=== PATIENT | male | born 1945 | race African-American/Black ===

== ENCOUNTER 2016-11-23 07:12 | Emergency (ER) | payer MEDICARE, MEDICAID ==
[~2016-11-23] VITALS: Ht 167.6 cm; Wt 61.0 kg
[~2016-11-23 07:12] MED LIST: ATOR80TA76 PO; BENA40TA3 PO
[2016-11-23] MEDS ORDERED: ALBUTEROL (0.083%) 2.5MG/3ML NEB HHN STA (08:03)
[2016-11-23] MEDS ORDERED: IPRATROPIUM BROMIDE (0.02%) 0.5MG/2.5ML NEB HHN STA (08:03)
[2016-11-23] MEDS ORDERED: METHYLPREDNISOLONE SOD SUCC 125 MG/2 ML VIAL IV STA (08:03)
[2016-11-23 08:14] LABS: BASOPHILS % 0.8 % (0.0-2.0); EOSINOPHILS % 3.4 % (0.0-5.0); HEMATOCRIT. 35.3 % (42.0-52.0); HEMOGLOBIN. 11.5 g/dL (14.0-18.0); LYMPHOCYTES % 19.1 % (20.0-50.0); MEAN CORPUSCULAR HEMOGLOBIN 24.1 pg (28.0-32.0); MEAN CORPUSCULAR VOLUME 73.9 fL (80.0-94.0); MEAN PLATELET VOLUME 7.9 fl (7.4-10.4); MONOCYTES % 7.7 % (2.0-8.0); PLATELET 223 x1000/uL (130-400); RED BLOOD CELL COUNT 4.78 mill/uL (4.7-6.1); RED CELL DISTRIBUTION WIDTH 14.5 % (11.6-14.6)
[2016-11-23] MEDS ORDERED: MAGNESIUM 2 G PREMIX 50 ML IV ONE (08:15)
[2016-11-23 08:20] LABS: PROTHROMBIN TIME 10.7 sec
[2016-11-23 08:29] LABS: CARBON DIOXIDE 30 mEq/L (21-32); CHLORIDE 105 mEq/L (98-107); TROPONIN I < 0.02 ng/mL (0.00-0.04)
[2016-11-23 10:27] VITALS: BP 121/74
== END 2016-11-23 10:51 | disposition home or self-care (01) ==
LOC: ER 08:10
DX: J44.1 Chronic obstructive pulmonary disease with (acute) exacerbation (principal); J20.9 Acute bronchitis, unspecified; J44.0 Chronic obstructive pulmonary disease with (acute) lower respiratory infection; E78.00 Pure hypercholesterolemia, unspecified; I10 Essential (primary) hypertension
CPT/HCPCS: 36415; 71010; 80053; 83880; 84484; 85025; 85610; 93005; 94644; 96365; 96366; 96375; 99285; J2930; J3475; J7611

== ENCOUNTER 2017-03-24 10:36 | Emergency (ER) | payer MEDICARE, MEDICAID ==
[~2017-03-24] VITALS: Ht 175.3 cm; Wt 82.0 kg
[~2017-03-24 10:36] MED LIST changes: +ATOR-2 PO; -ATOR80TA76 PO
[2017-03-24] MEDS ORDERED: IPRATROPIUM/ALBUTEROL 0.5-3(2.5)MG/3ML NEB HHN ONE (11:30)
[2017-03-24 12:05] LABS: HEMATOCRIT. 40.2 % (42.0-52.0); HEMOGLOBIN. 12.5 g/dL (14.0-18.0); LYMPHOCYTES % 23.1 % (20.0-50.0); MEAN CORPUSCULAR HEMOGLOBIN 23.1 pg (28.0-32.0); MEAN PLATELET VOLUME 7.9 fl (7.4-10.4); MONOCYTES % 5.8 % (2.0-8.0); NEUTROPHILS % 68.1 % (40.0-76.0); PLATELET 197 x1000/uL (130-400); RED BLOOD CELL COUNT 5.43 mill/uL (4.7-6.1)
[2017-03-24 12:19] LABS: CARBON DIOXIDE 30 mEq/L (21-32); CHLORIDE 102 mEq/L (98-107); TROPONIN I < 0.02 ng/mL (0.00-0.04)
[2017-03-24 12:23] LABS: INR 1.1; PARTIAL THROMBOPLASTIN TIME 23.9 sec (23.4-31.0); PROTHROMBIN TIME 11.2 sec (9.4-11.6)
[2017-03-24 13:53] VITALS: BP 106/72
== END 2017-03-24 15:28 | disposition home or self-care (01) ==
LOC: ER 10:36
DX: J20.9 Acute bronchitis, unspecified (principal); B34.9 Viral infection, unspecified; I10 Essential (primary) hypertension; R00.1 Bradycardia, unspecified; E78.00 Pure hypercholesterolemia, unspecified; Z98.890 Other specified postprocedural states
CPT/HCPCS: 36415; 71010; 80053; 83690; 84484; 85025; 85610; 85730; 93005; 94640; 99285; J7620

== ENCOUNTER 2017-08-31 10:20 | Emergency (ER) | payer MEDICARE, MEDICAID ==
[~2017-08-31] VITALS: Ht 167.6 cm; Wt 59.0 kg
[2017-08-31] MEDS ORDERED: ALBUTEROL (0.083%) 2.5MG/3ML NEB HHN STA (10:45)
[2017-08-31] MEDS ORDERED: PREDNISONE 20MG TABLET PO STA (10:45)
[2017-08-31] MEDS ORDERED: IPRATROPIUM BROMIDE (0.02%) 0.5MG/2.5ML NEB HHN STA (10:45)
[2017-08-31 12:45] VITALS: BP 115/63
== END 2017-08-31 12:49 | disposition home or self-care (01) ==
LOC: ER 12:24
DX: J45.901 Unspecified asthma with (acute) exacerbation (principal); B34.9 Viral infection, unspecified; I10 Essential (primary) hypertension; E78.00 Pure hypercholesterolemia, unspecified; Z98.890 Other specified postprocedural states
CPT/HCPCS: 71045; 94644; 99285; J7512; J7611

== ENCOUNTER 2017-10-22 08:59 | Emergency (ER) | payer MEDICARE, MEDICAID ==
[~2017-10-22] VITALS: Ht 167.6 cm; Wt 61.0 kg
[2017-10-22 09:21] VITALS: BP 166/55
== END 2017-10-22 10:37 | disposition home or self-care (01) ==
LOC: ER 10:12
DX: K04.7 Periapical abscess without sinus (principal); I10 Essential (primary) hypertension; J45.909 Unspecified asthma, uncomplicated; E78.00 Pure hypercholesterolemia, unspecified; D64.9 Anemia, unspecified
CPT/HCPCS: 99283

== ENCOUNTER 2018-03-27 16:23 | Emergency (ER) | payer MEDICARE, MEDICAID ==
[~2018-03-27] VITALS: Ht 167.6 cm; Wt 61.0 kg
[~2018-03-27 16:23] MED LIST changes: -BENA40TA3 PO; +BENA40TA9 PO
[2018-03-27 16:54] VITALS: BP 115/82
[2018-03-27] MEDS ORDERED: IPRATROPIUM BROMIDE (0.02%) 0.5MG/2.5ML NEB HHN STA (17:14)
[2018-03-27] MEDS ORDERED: PREDNISONE 20MG TABLET PO STA (17:14)
[2018-03-27] MEDS ORDERED: ALBUTEROL (0.083%) 2.5MG/3ML NEB HHN STA (17:14)
[2018-03-27 19:13] LABS: BASOPHILS % 0.5 % (0.0-2.0); EOSINOPHILS % 1.1 % (0.0-5.0); HEMATOCRIT. 41.6 % (42.0-52.0); HEMOGLOBIN. 13.1 g/dL (14.0-18.0); LYMPHOCYTES % 14.6 % (20.0-50.0); MEAN CORPUSCULAR HEMOGLOBIN 24.2 pg (28.0-32.0); MEAN CORPUSCULAR VOLUME 76.5 fL (80.0-94.0); MEAN PLATELET VOLUME 7.8 fl (7.4-10.4); MONOCYTES % 8.9 % (2.0-8.0); NEUTROPHILS % 74.9 % (40.0-76.0); PLATELET 155 x1000/uL (130-400); RED BLOOD CELL COUNT 5.44 mill/uL (4.7-6.1); RED CELL DISTRIBUTION WIDTH 14.7 % (11.6-14.6)
[2018-03-27 19:20] LABS: CHLORIDE 103 mEq/L (98-107); INR 1.1; PROTHROMBIN TIME 11.3 sec (9.1-11.1)
== END 2018-03-27 19:43 | disposition left against medical advice (07) ==
LOC: ER 19:33
DX: R06.02 Shortness of breath (principal); J45.909 Unspecified asthma, uncomplicated; Z98.890 Other specified postprocedural states
CPT/HCPCS: 36415; 71045; 80053; 83880; 84484; 85025; 85610; 93005; 94640; 99285; J7512; J7611

== ENCOUNTER 2019-02-26 09:10 | Emergency (ER) | payer MEDICARE, MEDICAID ==
[~2019-02-26] VITALS: Ht 167.6 cm; Wt 57.0 kg
[2019-02-26] MEDS ORDERED: ALBU90AE INH (09:24)
[2019-02-26] MEDS ORDERED: METHYLPREDNISOLONE SOD SUCC 125 MG/2 ML VIAL IV STA (10:20)
[2019-02-26] MEDS ORDERED: ALBUTEROL (0.083%) 2.5MG/3ML NEB HHN STA (10:20)
[2019-02-26] MEDS ORDERED: IPRATROPIUM BROMIDE (0.02%) 0.5MG/2.5ML NEB HHN STA (10:20)
[2019-02-26 10:55] LABS: BASOPHILS % 0.6 % (0.0-2.0); EOSINOPHILS % 0.6 % (0.0-5.0); HEMATOCRIT. 41.8 % (42.0-52.0); HEMOGLOBIN. 13.4 g/dL (14.0-18.0); LYMPHOCYTES % 16.8 % (20.0-50.0); MEAN CORPUSCULAR VOLUME 78.1 fL (80.0-94.0); MEAN PLATELET VOLUME 6.6 fl (7.4-10.4); MONOCYTES % 11.5 % (2.0-8.0); NEUTROPHILS % 70.5 % (40.0-76.0); PLATELET 138 x1000/uL (130-400); RED BLOOD CELL COUNT 5.36 mill/uL (4.7-6.1); RED CELL DISTRIBUTION WIDTH 15.3 % (11.6-14.6)
[2019-02-26 11:02] LABS: CHLORIDE 105 mEq/L (98-107)
[2019-02-26 14:00] VITALS: BP 120/78
== END 2019-02-26 14:01 | disposition home or self-care (01) ==
LOC: ER 09:31
DX: J45.901 Unspecified asthma with (acute) exacerbation (principal); I10 Essential (primary) hypertension; Z85.038 Personal history of other malignant neoplasm of large intestine; Z98.890 Other specified postprocedural states
CPT/HCPCS: 36415; 71045; 80053; 83880; 84484; 85025; 93005; 94640; 96374; 99284; J2930; J7611

== ENCOUNTER 2020-01-30 11:26 | Emergency (ER) | payer MEDICARE, MEDICAID ==
[~2020-01-30] VITALS: Ht 167.6 cm; Wt 54.0 kg
[~2020-01-30 11:26] MED LIST changes: +ALBU90AE INH
[2020-01-30] MEDS ORDERED: FLUORESCEIN SODIUM 1MG/STRIP RIGHTEYE ONE (12:00)
[2020-01-30] MEDS ORDERED: ACETAMINOPHEN 325MG TABLET PO ONE (12:00)
[2020-01-30] MEDS ORDERED: TETRACAINE 0.5% OPHTH DROPS 4ML RIGHTEYE ONE (12:00)
[2020-01-30] MEDS ORDERED: ALBUTEROL (0.083%) 2.5MG/3ML NEB HHN STA (18:41)
[2020-01-30] MEDS ORDERED: IPRATROPIUM BROMIDE (0.02%) 0.5MG/2.5ML NEB HHN STA (18:41)
[2020-01-30 19:27] VITALS: BP 135/84
== END 2020-01-30 22:26 | disposition short-term general hospital (02) ==
LOC: ER 11:26
DX: S02.31XA Fracture of orbital floor, right side, initial encounter for closed fracture (principal); S02.2XXA Fracture of nasal bones, initial encounter for closed fracture; I10 Essential (primary) hypertension; J45.909 Unspecified asthma, uncomplicated; E78.00 Pure hypercholesterolemia, unspecified; Z85.038 Personal history of other malignant neoplasm of large intestine; Z98.890 Other specified postprocedural states; Z60.2 Problems related to living alone; Y04.0XXA Assault by unarmed brawl or fight, initial encounter; Y93.89 Activity, other specified; Y92.512 Supermarket, store or market as the place of occurrence of the external cause
CPT/HCPCS: 70486; 73130; 93005; 94640; 99285

== ENCOUNTER 2020-03-11 22:30 | Emergency (ER) | payer MEDICARE, MEDICAID ==
[~2020-03-11] VITALS: Ht 170.2 cm; Wt 62.0 kg
[2020-03-11] MEDS ORDERED: SODIUM CHLORIDE 0.9% 500 ML IV ONE (22:59)
[2020-03-11] MEDS ORDERED: ACETAMINOPHEN 500MG TABLET PO STA (22:59)
[2020-03-11 23:29] LABS: BASOPHILS % 0.7 % (0.0-2.0); EOSINOPHILS % 3.8 % (0.0-5.0); HEMATOCRIT. 44.5 % (42.0-52.0); HEMOGLOBIN. 14.1 g/dL (14.0-18.0); LYMPHOCYTES % 20.5 % (20.0-50.0); MEAN CORPUSCULAR HEMOGLOBIN 24.7 pg (28.0-32.0); MEAN PLATELET VOLUME 7.4 fl (7.4-10.4); PLATELET 180 x1000/uL (130-400); RED CELL DISTRIBUTION WIDTH 14.6 % (11.6-14.6)
[2020-03-11 23:36] LABS: CHLORIDE 106 mEq/L (98-107)
[2020-03-11 23:39] LABS: PARTIAL THROMBOPLASTIN TIME 23.6 sec (23.4-31.0)
[2020-03-12] MEDS ORDERED: IOHEXOL-300 100 ML BOTTLE ONE (00:45)
[2020-03-12 05:43] VITALS: BP 129/72
== END 2020-03-12 05:45 | disposition home or self-care (01) ==
LOC: ER 22:30
DX: R07.89 Other chest pain (principal); R91.1 Solitary pulmonary nodule; I10 Essential (primary) hypertension; J45.909 Unspecified asthma, uncomplicated; E78.00 Pure hypercholesterolemia, unspecified; Z85.9 Personal history of malignant neoplasm, unspecified; V43.52XA Car driver injured in collision with other type car in traffic accident, initial encounter; Y93.89 Activity, other specified; Y92.488 Other paved roadways as the place of occurrence of the external cause
CPT/HCPCS: 36415; 71045; 71260; 80053; 83690; 84484; 85025; 85610; 85730; 86850; 86900; 86901; 93005; 96360; 99285; J7030; Q9967

== ENCOUNTER 2021-09-23 09:40 | Emergency (ER) | payer MEDICARE, MEDICAID ==
[~2021-09-23] VITALS: Ht 167.6 cm; Wt 57.0 kg
[2021-09-23] MEDS ORDERED: LIDOCAINE 5% PATCH TOP SCH (10:15)
[2021-09-23] MEDS ORDERED: METHOCARBAMOL 750MG TABLET PO SCH (10:15)
[2021-09-23] MEDS ORDERED: KETOROLAC 60MG/2ML VIAL IM ONE (10:15)
[2021-09-23 12:00] VITALS: BP 186/87
[2021-09-24] MEDS ORDERED: HYDR25TA PO (00:43)
[2021-09-24] MEDS ORDERED: HYDR-4009 MT (00:43)
[2021-09-24] MEDS ORDERED: GABA-290 PO (00:43)
[2021-09-24] MEDS ORDERED: ASPI-1497 PO (00:43)
[2021-09-24] MEDS ORDERED: GABA-532 PO (00:43)
[2021-09-24] MEDS ORDERED: HYDR-4001 MT (15:29)
== END 2021-09-23 13:51 | disposition left against medical advice (07) ==
LOC: ER 09:40
DX: S22.029A Unspecified fracture of second thoracic vertebra, initial encounter for closed fracture (principal); I10 Essential (primary) hypertension; J45.909 Unspecified asthma, uncomplicated; Z85.118 Personal history of other malignant neoplasm of bronchus and lung; Z90.2 Acquired absence of lung [part of]; W01.0XXA Fall on same level from slipping, tripping and stumbling without subsequent striking against object, initial encounter; Y93.01 Activity, walking, marching and hiking; Y92.89 Other specified places as the place of occurrence of the external cause
CPT/HCPCS: 71045; 72128; 72131; 72148; 72170; 93005; 96372; 99285; J1885

== ENCOUNTER 2021-09-23 14:51 | Inpatient (IN) | payer MEDICARE, MEDICAID ==
[~2021-09-23] VITALS: Ht 167.6 cm; Wt 56.2 kg
[2021-09-23] MEDS ORDERED: DOCUSATE SODIUM 100MG CAPSULE PO PRN (18:00)
[2021-09-23] MEDS ORDERED: LORAZEPAM 0.5MG TABLET PO PRN (18:00)
[2021-09-23] MEDS ORDERED: ACETAMINOPHEN 325MG TABLET PO PRN (18:00)
[2021-09-23] MEDS ORDERED: MAGNESIUM/ALUMINUM HYDROXIDE/SIMETHICONE 30ML UDC PO PRN (18:00)
[2021-09-23] MEDS ORDERED: NA PHOS,M-B/NA PHOS,DI-BA ENEMA 118ML PR PRN (18:00)
[2021-09-23] MEDS ORDERED: ACETAMINOPHEN 650MG SUPP PR PRN (18:00)
[2021-09-23] MEDS ORDERED: GUAIFENESIN 200MG/10ML SUGAR FREE UDC PO PRN (18:00)
[2021-09-23] MEDS ORDERED: ONDANSETRON HCL 4MG/2ML INJ IV PRN (18:00)
[2021-09-23] MEDS ORDERED: DIPHENHYDRAMINE 50MG/ML VIAL IV PRN (18:00)
[2021-09-23 18:21] LABS: CLARITY URINE CLEAR (CLEAR); COLOR URINE YELLOW (YELLOW); KETONES URINE NEGATIVE (NEGATIVE); LEUKOCYTE ESTERASE URINE NEGATIVE (NEGATIVE); NITRITE URINE NEGATIVE (NEGATIVE); OCCULT BLOOD URINE NEGATIVE (NEGATIVE); PROTEIN URINE NEGATIVE (NEGATIVE); SPECIFIC GRAVITY URINE 1.024 (1.005-1.030)
[2021-09-23 18:27] LABS: EOSINOPHILS % 6.9 % (0.0-5.0); HEMATOCRIT. 36.3 % (42.0-52.0); HEMOGLOBIN. 11.4 g/dL (14.0-18.0); LYMPHOCYTES % 18.4 % (20.0-50.0); MEAN CORPUSCULAR HEMOGLOBIN 24.3 pg (28.0-32.0); MEAN PLATELET VOLUME 7.3 fl (7.4-10.4); MONOCYTES % 5.2 % (2.0-8.0); NEUTROPHILS % 68.5 % (40.0-76.0); PLATELET 222 x1000/uL (130-400); RED BLOOD CELL COUNT 4.71 mill/uL (4.7-6.1); RED CELL DISTRIBUTION WIDTH 15.2 % (11.6-14.6)
[2021-09-23 18:33] LABS: *BARBITURATES SCREEN URINE NEGATIVE (NEGATIVE); *BENZODIAZEPINES SCREEN URINE NEGATIVE (NEGATIVE); *COCAINE SCREEN URINE PRESUMTIVE POSITIVE (NEGATIVE); METHADONE URINE SCREEN NEGATIVE (NEGATIVE); OPIATES URINE SCREEN PRESUMTIVE POSITIVE (NEGATIVE)
[2021-09-23 18:33] LABS: CHLORIDE 107 mEq/L (98-107)
[2021-09-23 18:34] LABS: *AMPHETAMINES SCREEN URINE NEGATIVE (NEGATIVE); CANNABINOID URINE SCREEN PRESUMTIVE POSITIVE (NEGATIVE); PHENCYCLIDINE URINE SCREEN NEGATIVE (NEGATIVE)
[2021-09-23] MEDS: HYDROCODONE/ACETAMINOPHEN 5/325MG TABLET PO PRN (18:51)
[2021-09-23] MEDS ORDERED: CEFTRIAXONE 1 G PREMIX 50 ML IV SCH (20:00)
[2021-09-23] MEDS: FAMOTIDINE 20MG TABLET PO SCH (21:00)
[2021-09-23] MEDS: IPRATROPIUM/ALBUTEROL 0.5-3(2.5)MG/3ML NEB NEB PRN (22:09)
[2021-09-23 23:35] VITALS: BP 165/73
[2021-09-24 00:02] LABS: CREATINE KINASE MB FRACTION 2.3 ng/mL (0.5-3.6)
[2021-09-24] MEDS: MORPHINE SULFATE 2 MG/ML CPJ (NOT FOR IM USE) IV PRN (00:22)
[2021-09-24] MEDS ORDERED: ASPI-1497 PO (00:43)
[2021-09-24] MEDS ORDERED: HYDR-4009 MT (00:43)
[2021-09-24] MEDS ORDERED: GABA-290 PO (00:43)
[2021-09-24] MEDS ORDERED: GABA-532 PO (00:43)
[2021-09-24] MEDS ORDERED: HYDR25TA PO (00:43)
[2021-09-24 04:00] VITALS: BP 98/59
[2021-09-24] MEDS: IPRATROPIUM/ALBUTEROL 0.5-3(2.5)MG/3ML NEB NEB PRN (04:28)
[2021-09-24] MEDS: HYDROCODONE/ACETAMINOPHEN 5/325MG TABLET PO PRN ×4 (06:16→20:10)
[2021-09-24 07:32] LABS: CHLORIDE 109 mEq/L (98-107)
[2021-09-24 07:36] LABS: BASOPHILS % 0.6 % (0.0-2.0); EOSINOPHILS % 8.5 % (0.0-5.0); HEMATOCRIT. 36.1 % (42.0-52.0); HEMOGLOBIN. 11.3 g/dL (14.0-18.0); LYMPHOCYTES % 16.8 % (20.0-50.0); MEAN CORPUSCULAR HEMOGLOBIN 23.9 pg (28.0-32.0); MEAN CORPUSCULAR VOLUME 76.4 fL (80.0-94.0); MEAN PLATELET VOLUME 7.8 fl (7.4-10.4); MONOCYTES % 6.2 % (2.0-8.0); NEUTROPHILS % 67.9 % (40.0-76.0); PLATELET 239 x1000/uL (130-400); RED BLOOD CELL COUNT 4.72 mill/uL (4.7-6.1); RED CELL DISTRIBUTION WIDTH 14.7 % (11.6-14.6)
[2021-09-24 07:43] LABS: CREATINE KINASE MB FRACTION 2.5 ng/mL (0.5-3.6)
[2021-09-24 08:00] VITALS: BP 118/50
[2021-09-24 12:00] VITALS: BP 148/59
[2021-09-24] MEDS ORDERED: HYDR-4001 MT (15:29)
[2021-09-24 16:00] VITALS: BP 119/80
[2021-09-24 20:00] VITALS: BP 130/79
[2021-09-24] MEDS ORDERED: CEFTRIAXONE 1,000 MG in DEXTROSE 5% WATER 50 ML IV SCH (21:00)
[2021-09-24] MEDS: FAMOTIDINE 20MG TABLET PO SCH (21:15)
[2021-09-24] MEDS ORDERED: NALOXONE HCL 0.4MG/ML VIAL IV PRN (22:15)
[2021-09-25] VITALS: BP 150/60
[2021-09-25] MEDS: HYDROCODONE/ACETAMINOPHEN 5/325MG TABLET PO PRN ×2 (00:25→12:19)
[2021-09-25] MEDS: IPRATROPIUM/ALBUTEROL 0.5-3(2.5)MG/3ML NEB NEB PRN ×2 (00:38→16:46)
[2021-09-25] MEDS: MORPHINE SULFATE 2 MG/ML CPJ (NOT FOR IM USE) IV PRN ×3 (02:13→16:12)
[2021-09-25 04:00] VITALS: BP 123/84
[2021-09-25 07:39] LABS: BASOPHILS % 0.6 % (0.0-2.0); EOSINOPHILS % 6.4 % (0.0-5.0); HEMATOCRIT. 34.2 % (42.0-52.0); HEMOGLOBIN. 10.9 g/dL (14.0-18.0); MEAN CORPUSCULAR VOLUME 75.6 fL (80.0-94.0); MEAN PLATELET VOLUME 7.6 fl (7.4-10.4); MONOCYTES % 5.9 % (2.0-8.0); NEUTROPHILS % 71.1 % (40.0-76.0); PLATELET 236 x1000/uL (130-400); RED BLOOD CELL COUNT 4.53 mill/uL (4.7-6.1); RED CELL DISTRIBUTION WIDTH 14.6 % (11.6-14.6)
[2021-09-25 07:45] LABS: CHLORIDE 111 mEq/L (98-107)
[2021-09-25 08:00] VITALS: BP 126/90
[2021-09-25 12:00] VITALS: BP 152/75
[2021-09-25 16:00] VITALS: BP 148/80
[2021-09-25 18:34] VITALS: BP 148/80
== END 2021-09-25 19:53 | disposition home or self-care (01) | DRG 552 ==
LOC: ER 14:51 → EDBEDREQSVC 15:10 → EDBEDREQTM 15:40 → MICUSO 17:32 → EDBEDREQ 17:36 → EDBEDREQSVC 17:36 → EDBEDREQTM 17:36 → SUPCPDRO 18:14 → 7EST 09-24 00:09
PROVIDERS: ADMIT Internal Medicine; ATTEND Internal Medicine
DX: S22.089A Unspecified fracture of T11-T12 vertebra, initial encounter for closed fracture (principal); C79.51 Secondary malignant neoplasm of bone; C34.90 Malignant neoplasm of unspecified part of unspecified bronchus or lung; I10 Essential (primary) hypertension; R00.1 Bradycardia, unspecified; J45.909 Unspecified asthma, uncomplicated; M54.9 Dorsalgia, unspecified; E78.5 Hyperlipidemia, unspecified; W18.39XA Other fall on same level, initial encounter; F14.10 Cocaine abuse, uncomplicated; R26.89 Other abnormalities of gait and mobility; Z85.118 Personal history of other malignant neoplasm of bronchus and lung; Z79.899 Other long term (current) drug therapy; Y93.89 Activity, other specified; Y92.89 Other specified places as the place of occurrence of the external cause; Y99.8 Other external cause status; M48.04 Spinal stenosis, thoracic region
CPT/HCPCS: 36415; 72146; 80048; 80053; 80305; 81003; 82550; 82553; 83735; 84443; 84484; 85025; 93005; 93306; 93970; 94640; 97162; 99285; J0696; J2270; J7040; J7060